=== PATIENT | female | born 1935 | race Caucasian/White ===

== ENCOUNTER 2020-01-10 15:53 | Inpatient (IN) | payer MEDICARE, OTHER ==
[~2020-01-10] VITALS: Ht 152.4 cm; Wt 76.5 kg
--- NOTE | 2020-01-10 16:14 | ED Cardiac General ---
History of Present Illness General Chief Complaint: Cardiac/General Problems Stated Complaint: LOW PULSE Source: patient Exam Limitations: no limitations History of Present Illness Date Seen by Provider: Jan 10, 2020 Time Seen by Provider: 16:11 Initial Comments To ER per private vehicle with reports of low pulse. She was at [facility] in [place] with Candice Zheng having her annual wellness exam, noted to have a low pulse and was referred here to the emergency room. She denies any shortness of breath, denies lightheadedness, denies fatigue or chest pain. Family has noticed her to be unusually weak and fatigued for the past 2-3 years. She is on lisinopril, metformin, amlodipine, no beta blockers. Timing/Duration: other (unknown) Activities at Onset: none Prior CP/Workup: no prior chest pain NTG SL MANAGER STAFFING: No ASA po MANAGER STAFFING: No Allergies and Home Medications Patient Home Medication List Home Medication List Reviewed: Yes Review of Systems Review of Systems Constitutional: see HPI EENTM: No Symptoms Reported Respiratory: No Symptoms Reported Cardiovascular: See HPI; Denies Chest Pain; Edema (chronic and unchanged in character), Irregular Heart Rate; Denies Lightheadedness, Denies Palpitations, Denies Syncope Gastrointestinal: See HPI Genitourinary: No Symptoms Reported Musculoskeletal: no symptoms reported Skin: no symptoms reported Psychiatric/Neurological: No Symptoms Reported Endocrine: No Symptoms Reported Hematologic/Lymphatic: No Symptoms Reported Past Axcbpui-Ewamkn-Ehawfo Hx Patient Social History Recent Foreign Travel: No Contact w/Someone Who Travel: No Physical Exam Vital Signs Vital Signs - First Documented 01/10/20 16:03 Temp 37.6 Pulse 44 Resp 28 Pulse Ox 98 O2 Delivery Room Air Capillary Refill : Height, Weight, BMI Height: '" Weight: lbs. oz. kg; BMI Method: General Appearance: No Apparent Distress, WD/WN HEENT: PERRL/EOMI, TMs Normal Neck: Full Range of Motion, Normal Inspection Respiratory: No Accessory Muscle Use, No Respiratory Distress Cardiovascular: Normal Peripheral Pulses, Bradycardia Gastrointestinal: Normal Bowel Sounds, Non Tender, Soft Extremity: Normal Capillary Refill, Normal Inspection, Other (2+ pitting edema bilateral lower extremities at the ankle, unchanged from baseline according to family.) Neurologic/Psychiatric: Alert, Oriented x3 Skin: Normal Color, Warm/Dry Progress/Results/Core Measures Results/Orders Lab Results Laboratory Tests Test 01/10/20 16:20 Range/Units White Blood Count 8.3 4.3-11.0 10^3/uL Red Blood Count 4.84 4.35-5.85 10^6/uL Hemoglobin 14.1 11.5-16.0 G/DL Hematocrit 41 35-52 % Mean Corpuscular Volume 84 80-99 FL Mean Corpuscular Hemoglobin 29 25-34 PG Mean Corpuscular Hemoglobin Concent 35 32-36 G/DL Red Cell Distribution Width 12.7 10.0-14.5 % Platelet Count 360 130-400 10^3/uL Mean Platelet Volume 9.8 7.4-10.4 FL Neutrophils (%) (Auto) 56 42-75 % Lymphocytes (%) (Auto) 37 12-44 % Monocytes (%) (Auto) 7 0-12 % Eosinophils (%) (Auto) 1 0-10 % Basophils (%) (Auto) 0 0-10 % Neutrophils # (Auto) 4.7 1.8-7.8 X 10^3 Lymphocytes # (Auto) 3.1 1.0-4.0 X 10^3 Monocytes # (Auto) 0.5 0.0-1.0 X 10^3 Eosinophils # (Auto) 0.1 0.0-0.3 10^3/uL Basophils # (Auto) 0.0 0.0-0.1 10^3/uL Prothrombin Time 12.8 12.2-14.7 SEC INR Comment 0.9 0.8-1.4 Activated Partial Thromboplast Time 27 24-35 SEC Sodium Level 132 L 135-145 MMOL/L Potassium Level 4.6 3.6-5.0 MMOL/L Chloride Level 98 98-107 MMOL/L Carbon Dioxide Level 19 L 21-32 MMOL/L Anion Gap 15 H 5-14 MMOL/L Blood Urea Nitrogen 12 7-18 MG/DL Creatinine 1.03 0.60-1.30 MG/DL Estimat Glomerular Filtration Rate 51 BUN/Creatinine Ratio 12 Glucose Level 219 H 70-105 MG/DL Calcium Level 10.2 H 8.5-10.1 MG/DL Corrected Calcium 10.0 8.5-10.1 MG/DL Magnesium Level 1.5 L 1.6-2.4 MG/DL Total Bilirubin 0.4 0.1-1.0 MG/DL Aspartate Amino Transf (AST/SGOT) 14 5-34 U/L Alanine Aminotransferase (ALT/SGPT) 17 0-55 U/L Alkaline Phosphatase 75 40-136 U/L Myoglobin 48.2 10.0-92.0 NG/ML Troponin I < 0.028 <0.028 NG/ML B-Type Natriuretic Peptide 80.8 <100.0 PG/ML Total Protein 7.7 6.4-8.2 GM/DL Albumin 4.2 3.2-4.5 GM/DL My Orders Orders - LALITHA MOREAU APRN Cbc With Automated Diff (01/10/20 16:00) Magnesium (01/10/20 16:00) Chest 1 View, Ap/Pa Only (01/10/20 16:00) Ekg Tracing (01/10/20 16:00) Comprehensive Metabolic Panel (01/10/20 16:00) Myoglobin Serum (01/10/20 16:00) Protime With Inr (01/10/20 16:00) Partial Thromboplastin Time (01/10/20 16:00) O2 (01/10/20 16:00) Monitor-Rhythm Ecg Trace Only (01/10/20 16:00) Lipid Panel (01/11/20 06:00) Ed Iv/Invasive Line Start (01/10/20 16:00) BNP (01/10/20 16:00) Troponin I (01/10/20 16:00) Vital Signs/I&O 01/10/20 16:03 Temp 37.6 Pulse 44 Resp 28 B/P (MAP) Pulse Ox 98 O2 Delivery Room Air Diagnostic Imaging Diagonstic Imaging: Xray Plain Films/CT/US/NM/MRI: chest Comments NAME: [facility] REC#: [id number] PT STATUS: REG ER : 1935 PHYSICIAN: LALITHA MOREAU APRN ADMIT DATE: 01/10/20/ER Draft Date of Exam:01/10/20 CHEST 1 VIEW, AP/PA ONLY INDICATION: Chest pain. FINDINGS: Heart size is within normal limits. There is some prominence of the central pulmonary vascularity. No alessia edema, pneumonia, effusion or pneumothorax. Some calcified hilar and mediastinal jc granulomatous disease. IMPRESSION: Some central vascular prominence as well as calcified thoracic lymph nodes on a granulomatous basis. No acute appearing chest pathology. Dictated on workstation # [id number] Dict: 01/10/20 1637 Trans: 01/10/20 1640 TS [id number] Interpreted by: LUÍS BOWSER Electronically signed by: Departure Communication (Admissions) Time/Spoke to Admitting Phy: 17:[address] Villareal and Dr. Velasquez, Dr. Velasquez would like to hold the amlodipine that she takes daily, continue the lisinopril and metformin, could give hydralazine as needed for hypertension as she has been 190/70 year the emergency room. I also spoke with the patient and family about CODE STATUS, she does have a DO NOT RESUSCITATE already filled out and they would like to keep that in place. I'll admit to the ICU. At this time she remains asymptomatic. Impression Primary Impression: Heart block Disposition: ADMITTED INPATIENT Condition: Stable Admissions Decision to Admit Reason: Admit from ER (General) Decision to Admit/Date: Jan 10, 2020 Time/Decision to Admit Time: 16:41 Departure-Patient Inst. Referrals: NO,LOCAL PHYSICIAN (PCP) Primary Care Physician LALITHA MOREAU APRN Jan 10, 2020 16:13
[2020-01-10 16:30] LABS: BASOPHILS % (AUTO) 0 % (0-10); EOSINOPHILS # (AUTO) 0.1 10^3/uL (0.0-0.3); EOSINOPHILS % (AUTO) 1 % (0-10); HEMATOCRIT 41 % (35-52); HEMOGLOBIN 14.1 G/DL (11.5-16.0); LYMPHOCYTES # (AUTO) 3.1 X 10^3 (1.0-4.0); LYMPHOCYTES % (AUTO) 37 % (12-44); MEAN CORPUSCULAR HEMOGLOBIN 29 PG (25-34); MEAN CORPUSCULAR HGB CONC 35 G/DL (32-36); MEAN CORPUSCULAR VOLUME 84 FL (80-99); MEAN PLATELET VOLUME 9.8 FL (7.4-10.4); MONOCYTES # (AUTO) 0.5 X 10^3 (0.0-1.0); MONOCYTES % (AUTO) 7 % (0-12); NEUTROPHILS # (AUTO) 4.7 X 10^3 (1.8-7.8); NEUTROPHILS % (AUTO) 56 % (42-75); PLATELET COUNT 360 10^3/uL (130-400); RED CELL DISTRIBUTION WIDTH 12.7 % (10.0-14.5); WHITE BLOOD COUNT 8.3 10^3/uL (4.3-11.0)
--- NOTE | 2020-01-10 16:40 | Diagnostic Imaging Report ---
INDICATION: Chest pain. FINDINGS: Heart size is within normal limits. There is some prominence of the central pulmonary vascularity. No alessia edema, pneumonia, effusion or pneumothorax. Some calcified hilar and mediastinal jc granulomatous disease. IMPRESSION: Some central vascular prominence as well as calcified thoracic lymph nodes on a granulomatous basis. No acute appearing chest pathology. Dictated by: Dictated on workstation # [id number]
[2020-01-10 16:54] LABS: INR 0.9 (0.8-1.4); PROTHROMBIN TIME PATIENT 12.8 SEC (12.2-14.7)
[2020-01-10 17:00] LABS: ALBUMIN 4.2 GM/DL (3.2-4.5); BILIRUBIN,TOTAL 0.4 MG/DL (0.1-1.0); CALCIUM 10.2 MG/DL (8.5-10.1); CREATININE SERUM 1.03 MG/DL (0.60-1.30); MAGNESIUM 1.5 MG/DL (1.6-2.4); POTASSIUM 4.6 MMOL/L (3.6-5.0); TOTAL PROTEIN 7.7 GM/DL (6.4-8.2)
[2020-01-10] MEDS ORDERED: hydrALAZINE (APESOLINE) 20 MG/ML VIAL IV ONE (18:00)
--- NOTE | 2020-01-10 18:43 | Consultation-Cardiology ---
HPI-Cardiology Cardiology Consultation: Date of Consultation 01/10/20 Time Seen by a Provider: 18:00 Date of Admission Attending Physician Saumya Villareal MD Admitting Physician No,Local Physician Consulting Physician MARINE SINCLAIR MD, MA, FACP, FACC, FSCAI, CCDS HPI: Chief Complaint: Reason for consultation: Slow heart beat HPI 84 yo woman who went to her pcp today for a routine visit and was found to have a slow heart beat. Referred to ER. ECG showed complete heart block. Denies cp or palp or syncope. Does tire easily. Notes moderate, exertional shortness of breath and recent decrease in stamina. Denies leg swelling. Denies recent fever, chills, wgt gain, wgt loss Review of Systems-Cardiology Review of Systems Constitutional: As described under HPI Eyes: No vision change Ears/Nose/Throat: chronic hearing loss; No recent hearing loss Respiratory: No As described under HPI Cardiovascular: No As described under HPI Gastrointestinal: No constipation, No diarrhea, No nausea, No vomiting Genitourinary: No dysuria, No hematuria, No urine frequency changes Musculoskeletal: back pain (chronic) Skin: No rash, No ulcerations Psychiatric/Neurological: No seizure, No focal weakness, No syncope Hematologic: No bleeding abnormalities KSR-Ognmzm-Jhfvwa Hx Patient Social History Alcohol Use: Denies Use Recreational Drug Use: No 2nd Hand Smoke Exposure: No Recent Foreign Travel: No Recent Infectious Disease Expo: No Hospitalization with Isolation: Denies Past Medical History PMH As described under Assessment. Family Medical History Family Medical History: Does not report fam h/o early CAD or SCD Allergies and Home Medications Allergies Coded Allergies: No Known Drug Allergies (Unverified , 01/10/20) Patient Home Medication List Home Medication List Reviewed: Yes Physical Exam-Cardiology Physical Exam Vital Signs/I&O 01/10/20 16:03 Temp 37.6 Pulse 44 Resp 28 B/P (MAP) Pulse Ox 98 O2 Delivery Room Air Capillary Refill : Less Than 3 Seconds Constitutional: AAO x 3, well-developed, well-nourished HEENT: PERRL, EOMI; No hearing is well preserved; hard of hearing Neck: carotid pulses are 2 + bilaterally, with good upstrokes Respiratory: No accessory muscle use; other (good bilat air entry) Cardiovascular: regular rate-rhythm, S1 and S2, systolic murmur (2/6 XOCHITL at card base) Gastrointestinal: No tender; soft; No guarding, No rebound; audible bowel sounds Extremities: No clubbing, No cyanosis, No significant edema Neurologic/Psychiatric: oriented x 3, other (moves all limbs equally) Skin: No rash on exposed areas, No ulcerations on exposed areas Data Review Labs Laboratory Tests 01/10/20 16:20: White Blood Count 8.3, Red Blood Count 4.84, Hemoglobin 14.1, Hematocrit 41, Mean Corpuscular Volume 84, Mean Corpuscular Hemoglobin 29, Mean Corpuscular Hemoglobin Concent 35, Red Cell Distribution Width 12.7, Platelet Count 360, Mean Platelet Volume 9.8, Neutrophils (%) (Auto) 56, Lymphocytes (%) (Auto) 37, Monocytes (%) (Auto) 7, Eosinophils (%) (Auto) 1, Basophils (%) (Auto) 0, Neutrophils # (Auto) 4.7, Lymphocytes # (Auto) 3.1, Monocytes # (Auto) 0.5, Eosinophils # (Auto) 0.1, Basophils # (Auto) 0.0, Prothrombin Time 12.8, INR Comment 0.9, Activated Partial Thromboplast Time 27, Sodium Level 132L, Potassium Level 4.6, Chloride Level 98, Carbon Dioxide Level 19L, Anion Gap 15H, Blood Urea Nitrogen 12, Creatinine 1.03, Estimat Glomerular Filtration Rate 51, BUN/Creatinine Ratio 12, Glucose Level 219H, Calcium Level 10.2H, Corrected Calcium 10.0, Magnesium Level 1.5L, Total Bilirubin 0.4, Aspartate Amino Transf (AST/SGOT) 14, Alanine Aminotransferase (ALT/SGPT) 17, Alkaline Phosphatase 75, Myoglobin 48.2, Troponin I < 0.028, B-Type Natriuretic Peptide 80.8, Total Protein 7.7, Albumin 4.2 Laboratory Tests 01/10/20 16:20 A/P-Cardiology Assessment/Admission Diagnosis Complete heart block Hypertension Discussion and Recomendations * Treat hypertension with hydralazine * Replenish Mg * Monitor labs * Echo * Permanent dual chamber pacemaker recommended. I reviewed the rationale, procedure, risks, benefits, and potential complications of the procedure with her and her daughters and her granddaughter. They understand. She is considering Clinical Quality Measures AMI/AHF: ASA po Prior to arrival: MARINE Barth MD FACP FACC CCDS Jan 10, 2020 18:43
[2020-01-10] MEDS ORDERED: MAGNESIUM 1 GM/100 ML IVPB 100 ML IV NR (18:45)
[2020-01-10] MEDS ORDERED: MAGNESIUM 1 GM/100 ML IVPB 100 ML IV ONE (18:45)
[2020-01-10] MEDS ORDERED: NS IV 1000 ML 1,000 ML ONE (18:58)
[2020-01-10 19:00] VITALS: BP 165/75
[2020-01-10] MEDS ORDERED: CATHETER FLUSH 10 ML SYR IV PRN (19:00)
[2020-01-10] MEDS: NS IV 1000 ML 1,000 ML IV SCH (19:00)
[2020-01-10] MEDS ORDERED: hydrALAZINE (APESOLINE) 20 MG/ML VIAL IV PRN (19:15)
[2020-01-10] MEDS: hydrALAZINE (APESOLINE) 20 MG/ML VIAL IV SCH ×2 (20:08→23:16)
[2020-01-10 20:15] VITALS: BP 166/56
[2020-01-10 21:00] VITALS: BP 159/56
[2020-01-10 22:00] VITALS: BP 160/55
[2020-01-10] MEDS: inSUlin ASPART (NovoLOG) 1 UNIT/0.01 ML (CHARGE PER UNIT) SC SCH (22:23)
[2020-01-10 23:00] VITALS: BP 163/54
[2020-01-11] VITALS (21 sets, daily range): BP systolic 110–164; BP diastolic 38–85
[2020-01-11] MEDS ORDERED: inSUlin ASPART (NovoLOG) 1 UNIT/0.01 ML (CHARGE PER UNIT) SC SCH
[2020-01-11 04:08] LABS: HEMATOCRIT 37 % (35-52); HEMOGLOBIN 12.7 G/DL (11.5-16.0); MEAN CORPUSCULAR HEMOGLOBIN 29 PG (25-34); MEAN CORPUSCULAR HGB CONC 34 G/DL (32-36); MEAN CORPUSCULAR VOLUME 84 FL (80-99); PLATELET COUNT 318 10^3/uL (130-400); RED CELL DISTRIBUTION WIDTH 12.9 % (10.0-14.5); WHITE BLOOD COUNT 9.5 10^3/uL (4.3-11.0)
[2020-01-11] MEDS: hydrALAZINE (APESOLINE) 20 MG/ML VIAL IV SCH ×5 (04:08→19:58)
[2020-01-11 04:09] LABS: BASOPHILS % (AUTO) 0 % (0-10); EOSINOPHILS # (AUTO) 0.1 10^3/uL (0.0-0.3); EOSINOPHILS % (AUTO) 1 % (0-10); LYMPHOCYTES # (AUTO) 2.2 X 10^3 (1.0-4.0); LYMPHOCYTES % (AUTO) 23 % (12-44); MEAN PLATELET VOLUME 10.3 FL (7.4-10.4); MONOCYTES # (AUTO) 0.8 X 10^3 (0.0-1.0); MONOCYTES % (AUTO) 9 % (0-12); NEUTROPHILS # (AUTO) 6.4 X 10^3 (1.8-7.8); NEUTROPHILS % (AUTO) 68 % (42-75)
[2020-01-11 04:48] LABS: ALBUMIN 3.6 GM/DL (3.2-4.5); BILIRUBIN,TOTAL 0.4 MG/DL (0.1-1.0); CALCIUM 9.5 MG/DL (8.5-10.1); CREATININE SERUM 1.14 MG/DL (0.60-1.30); MAGNESIUM 2.1 MG/DL (1.6-2.4); PHOSPHORUS 3.2 MG/DL (2.3-4.7); POTASSIUM 4.4 MMOL/L (3.6-5.0); TOTAL PROTEIN 6.4 GM/DL (6.4-8.2)
[2020-01-11] MEDS: POTASSIUM CL 10MEQ/50ML IVPB 50 ML IV SCH (05:10)
[2020-01-11] MEDS: MAGNESIUM 1 GM/100 ML IVPB 100 ML IV SCH (05:10)
[2020-01-11] MEDS: KCL 20 MEQ TAB (K-DUR) PO SCH (05:10)
[2020-01-11] MEDS: NS IV 1000 ML 1,000 ML IV SCH ×2 (05:59→15:30)
[2020-01-11] MEDS: inSUlin ASPART (NovoLOG) 1 UNIT/0.01 ML (CHARGE PER UNIT) SC SCH ×4 (06:09→20:14)
[2020-01-11] MEDS: metFORMIN 500 MG (GLUCOPHAGE) TAB PO SCH (07:53)
--- NOTE | 2020-01-11 07:53 | Diagnostic Imaging Report ---
INDICATION: Heart block. Comparison made with prior examination from 01/10/2020. FINDINGS: There is cardiomegaly. Mediastinum is unremarkable. Lungs are clear. There is no pleural effusion or pneumothorax. IMPRESSION: No acute cardiopulmonary abnormality. Cardiomegaly. Dictated by: Dictated on workstation # [id number]
[2020-01-11] MEDS: lisINopril 40 MG (PRINIVIL) TABLET PO SCH (09:31)
--- NOTE | 2020-01-11 10:17 | NUR ---
Pastoral care visit.
--- NOTE | 2020-01-11 10:48 | Progress Note - Cardiology ---
Cardiology SOAP Progress Note Subjective: No cp or palp or syncope No shortness of breath at rest Gen malaise No n/v/d Objective: I&O/Vital Signs 01/10/20 01/10/20 01/10/20 01/11/20 23:00 23:16 23:21 00:00 Temp 36.8 Pulse 41 42 Resp 18 19 B/P (MAP) 163/54 (90) 144/45 (78) Pulse Ox 94 95 O2 Delivery Room Air Room Air Room Air 01/11/20 01/11/20 01/11/20 01/11/20 01:00 01:00 02:00 03:00 Pulse 42 42 41 41 Resp 25 16 21 B/P (MAP) 140/46 (77) 156/47 (83) 148/49 (82) Pulse Ox 94 95 94 O2 Delivery Room Air Room Air Room Air 01/11/20 01/11/20 01/11/20 01/11/20 04:02 04:03 04:03 05:00 Temp 36.8 Pulse 41 41 Resp 16 22 B/P (MAP) 159/40 (79) 153/38 (76) Pulse Ox 96 96 O2 Delivery Room Air Room Air Room Air Room Air 01/11/20 01/11/20 01/11/20 01/11/20 06:00 07:00 07:00 08:00 Pulse 40 40 40 40 Resp 21 29 16 B/P (MAP) 164/63 (96) 144/66 (92) 151/48 (82) Pulse Ox 96 92 95 O2 Delivery Room Air Room Air Room Air 01/11/20 09:00 Pulse 40 Resp 21 B/P (MAP) Pulse Ox 97 O2 Delivery Room Air 01/11/20 00:00 Intake Total 200 ml Balance 200 ml Constitutional: AAO x 3, well-developed, well-nourished Respiratory: No accessory muscle use; other (good bilat air entry) Cardiovascular: regular rate-rhythm, S1 and S2, systolic murmur (2/6 XOCHITL at card base) Gastrointestional: No tender; soft; No guarding, No rebound; audible bowel sounds Extremities: No clubbing, No cyanosis, No significant edema Neurologic/Psychiatric: oriented x 3, other (moves all limbs equally) Skin: No rash on exposed areas, No ulcerations on exposed areas Results/Procedures: Labs Laboratory Tests 2/19/20 16:20: White Blood Count 8.3, Red Blood Count 4.84, Hemoglobin 14.1, Hematocrit 41, Mean Corpuscular Volume 84, Mean Corpuscular Hemoglobin 29, Mean Corpuscular Hemoglobin Concent 35, Red Cell Distribution Width 12.7, Platelet Count 360, M yulissa Platelet Volume 9.8, Neutrophils (%) (Auto) 56, Lymphocytes (%) (Auto) 37, Monocytes (%) (Auto) 7, Eosinophils (%) (Auto) 1, Basophils (%) (Auto) 0, Neutrophils # (Auto) 4.7, Lymphocytes # (Auto) 3.1, Monocytes # (Auto) 0.5, Eosinophils # (Auto) 0.1, Basophils # (Auto) 0.0, Prothrombin Time 12.8, INR Comment 0.9, Activated Partial Thromboplast Time 27, Sodium Level 132L, P otassium Level 4.6, Chloride Level 98, Carbon Dioxide Level 19L, Anion Gap 15H, Blood Urea Nitrogen 12, Creatinine 1.03, Estimat Glomerular Filtration Rate 51, BUN/Creatinine Ratio 12, Glucose Level 219H, Calcium Level 10.2H, Corrected Calcium 10.0, Magnesium Level 1.5L, Total Bilirubin 0.4, Aspartate Amino Transf (AST/SGOT) 14, Alanine Aminotransferase (ALT/SGPT) 17, Alkaline Phosphatase 75, Myoglobin 48.2, Troponin I < 0.028, B-Type Natriuretic Peptide 80.8, Total Protein 7.7, Albumin 4.2 01/10/20 22:19: Glucometer 315H 01/11/20 03:52: White Blood Count 9.5, Red Blood Count 4.43, Hemoglobin 12.7, Hematocrit 37, Mean Corpuscular Volume 84, Mean Corpuscular Hemoglobin 29, Mean Corpuscular Hemoglobin Concent 34, Red Cell Distribution Width 12.9, Platelet Count 318, Mean Platelet Volume 10.3, Neutrophils (%) (Auto) 68, Lymphocytes (%) (Auto) 23, Monocytes (%) (Auto) 9, Eosinophils (%) (Auto) 1, Basophils (%) (Auto) 0, Neutrophils # (Auto) 6.4, Lymphocytes # (Auto) 2.2, Monocytes # (Auto) 0.8, Eosinophils # (Auto) 0.1, Basophils # (Auto) 0.0, Sodium Level 133L, Potassium Level 4.4, Chloride Level 103, Carbon Dioxide Level 18L, Anion Gap 12, Blood Urea Nitrogen 15, Creatinine 1.14, Estimat Glomerular Filtration Rate 45, BUN/Creatinine Ratio 13, Glucose Level 182H, Calcium Level 9.5, Corrected Ca lcium 9.8, Magnesium Level 2.1, Total Bilirubin 0.4, Aspartate Amino Transf (AST/SGOT) 12, Alanine Aminotransferase (ALT/SGPT) 12, Alkaline Phosphatase 62, Total Protein 6.4, Albumin 3.6, Phosphorus Level 3.2, Triglycerides Level 186H, Cholesterol Level 232H, LDL Cholesterol Direct 180H, VLDL Cholesterol 37, HDL Cholesterol 46 01/11/20 06:03: Glucometer 200H Laboratory Tests 01/10/20 16:20 01/11/20 03:52 A/P: Assessment: Complete heart block Hypertension Plan: * Treat hypertension with hydralazine * Monitor labs * Echo * Permanent dual chamber pacemaker recommended. I again reviewed the rationale, procedure, risks, benefits, and potential complications of the procedure with her. She understands and wishes to proceed. Plan for later today Clinical Quality Measures AMI/AHF: ASA po Prior to arrival: MARINE Barth MD FACP FAC CCDS Jan 11, 2020 10:48
[2020-01-11] MEDS ORDERED: LIDOCAINE 1% INJ 20 ML 20 ML VIAL ONE (10:55)
[2020-01-11] MEDS ORDERED: HEParin (CATH LAB) 1,000 ML IV ONE (10:55)
[2020-01-11] MEDS ORDERED: ANTACID SUSP 30 ML UDC (MYLANTA) PO NR (12:45)
[2020-01-11] MEDS ORDERED: ACETAMINOPHEN 325 MG TABLET PO NR (12:45)
--- NOTE | 2020-01-11 12:45 | NUR ---
[address] SINCLAIR PT C/O CHEST PAIN AND NAUSEA. EKG OBTAINED. DR SINCLAIR SAID HE WILL COME AT LOOK AT EKG. 1245 DR SINCLAIR REVIEWED EKG. ORDERS GIVEN FOR TYLENOL AND MYLANTA. ORDERS WRITTEN DOWN AND REPEATED BACK. WILL CONTINUE TO MONITOR.
--- NOTE | 2020-01-11 14:15 | NUR ---
THIS NURSE ATTEMPTED TO NOTIFY DR ALDRICH PT SCORED A 6 ON DVT ASSESSMENT. ALSO PT HAS ONLY HAD 100ML OF URINE OUT SINCE 1000 AM. PT URINE IS VERY CLOUDY WITH FOUL ODOR. WILL ATTEMPT TO REACH DR ALDRICH AGAIN.
[2020-01-11] MEDS ORDERED: BACITRACIN INJECTION 50,000 UNIT, SODIUM CHLORIDE 0.9% IRRIGATIO 500 ML IR ONE ×2 (15:30)
[2020-01-11] MEDS ORDERED: BACITRACIN 50000 UNITS/500 ML NS IR ONE ×2 (15:30)
[2020-01-11] MEDS ORDERED: ceFAZolin INJECTION 1,000 MG ONE (16:13)
[2020-01-11] MEDS ORDERED: MIDAZOLAM 5 MG/5 ML (VERSED) VIAL ONE ×2 (16:13→17:32)
[2020-01-11] MEDS ORDERED: fentaNYL INJECTION 100 MCG/2 ML AMP ONE (16:13)
[2020-01-11] MEDS ORDERED: NS (IVPB) 0 ML ONE (16:15)
[2020-01-11] MEDS ORDERED: NS IV 1000 ML 1,000 ML ONE (16:39)
--- NOTE | 2020-01-11 17:32 | NUR ---
THIS NURSE NOTIFIED DR ALDRICH PT HAS ONLY HAD 100ML OF URINE OUTPUT THE LAST 4 HOURS AND PT URINE IS VERY CLOUDY WITH FOUL ODOR. ORDERS GIVEN FOR UA AND 500 ML BOLUS X1.
[2020-01-11 17:47] LABS: BILIRUBIN,URINE 1+ (NEGATIVE); CLARITY,URINE TURBID; COLOR,URINE YELLOW; GLUCOSE, URINE (UA) NEGATIVE (NEGATIVE); KETONES,URINE 1+ (NEGATIVE); LEUKOCYTE ESTERASE ,URINE 2+ (NEGATIVE); NITRITE,URINE NEGATIVE (NEGATIVE); PH,URINE 5.5 (5-9); PROTEIN,URINE 2+ (NEGATIVE)
[2020-01-11 18:00] LABS: BACTERIA,URINE LARGE /HPF; WBC,URINE TNTC /HPF
[2020-01-11] MEDS ORDERED: NS IV 1000 ML 1,000 ML IV SCH (18:46)
[2020-01-11] MEDS ORDERED: PATIENT MAY USE OWN MEDS, ALL PO SCH (19:00)
[2020-01-11] MEDS ORDERED: meTOprolol SUCCINATE 100 MG (TOPROL XL) TAB PO NR (19:00)
[2020-01-11] MEDS ORDERED: ACETAMINOPHEN 325 MG TABLET PO PRN (19:00)
--- NOTE | 2020-01-11 19:54 | Diagnostic Imaging Report ---
EXAMINATION: Chest (PA and lateral). CLINICAL INDICATION: 84-year-old female, status post pacemaker placement. COMPARISON: January 11, 2020 at 0346 hours. FINDINGS: There is a newly placed left-sided cardiac assist device and leads. Heart size and mediastinal contours are grossly unchanged given differences in patient positioning. There is no identified pneumothorax. There is nonspecific left basilar airspace consolidation. IMPRESSION: 1. No identified pneumothorax. 2. Nonspecific left basilar airspace consolidation which may relate to small effusion, atelectasis and/or infiltrate. Dictated by: Dictated on workstation # [id number]
[2020-01-11] MEDS: ceFAZolin INJECTION 1,000 MG in WATER (STERILE) FOR INJECTION 10 ML IV SCH (20:13)
[2020-01-11] MEDS: NS IV 500 ML 500 ML IV SCH ×2 (20:14→20:22)
--- NOTE | 2020-01-11 21:50 | History & Physical ---
HPI History of Present Illness: 84 yo F that was at her annual MAWV and was found to have bradycardia. Patient states that she has been fatigued but otherwise she has been asymptomatic. Denies any shortness of breath, chest pain, or dizziness. Source: patient, family (Daughter) Exam Limitations: no limitations Date seen by provider: Jan 11, 2020 Time Seen by Provider: 08:45 Attending Physician Erica Villareal MD [facility] [place] Consult Date of Admission Jan 10, 2020 at 17:15 Home Medications Home Medications Reviewed patient Home Medication Reconciliation performed by pharmacy medication reconciliations neurology technician and/or nursing. Patients Allergies have been reviewed. Allergies Coded Allergies: No Known Drug Allergies (Unverified , 01/10/20) CGP-Wkgebs-Xjklmi Hx Patient Social History Alcohol Use: Denies Use Recreational Drug Use: No 2nd Hand Smoke Exposure: No Recent Foreign Travel: No Contact w/other who traveled: No Recent Infectious Disease Expo: No Immunizations Up To Date Date of Pneumonia Vaccine: Jan 10, 2019 Date of Influenza Vaccine: Sep 15, 2019 Past Medical History HLD Family Medical History Significant Family History: No Pertinent Family Hx Family History: BREAST CA 19 MOTHER Hypertension 19 FATHER Review of Systems ([facility]) Constitutional: No chills, No fever; malaise, weakness EENTM: no symptoms reported; No mouth pain, No nose congestion, No throat pain Respiratory: No cough; dyspnea on exertion; No orthopnea; short of breath Cardiovascular: no symptoms reported; No chest pain, No edema, No palpitations Gastrointestinal: no symptoms reported; No abdominal pain, No constipation, No diarrhea, No nausea, No vomiting Genitourinary: no symptoms reported; No dysuria, No frequency, No hematuria Musculoskeletal: no symptoms reported Skin: no symptoms reported; No lesions, No rash Psychiatric/Neurological: No Symptoms Reported Reviewed Test Results Reviewed Test Results Lab Laboratory Tests Test 01/10/20 22:19 01/11/20 03:52 01/11/20 06:03 01/11/20 11:43 Range/Units Glucometer 315 H 200 H 188 H 70-110 MG/DL White Blood Count 9.5 4.3-11.0 10^3/uL Red Blood Count 4.43 4.35-5.85 10^6/uL Hemoglobin 12.7 11.5-16.0 G/DL Hematocrit 37 35-52 % Mean Corpuscular Volume 84 80-99 FL Mean Corpuscular Hemoglobin 29 25-34 PG Mean Corpuscular Hemoglobin Concent 34 32-36 G/DL Red Cell Distribution Width 12.9 10.0-14.5 % Platelet Count 318 130-400 10^3/uL Mean Platelet Volume 10.3 7.4-10.4 FL Neutrophils (%) (Auto) 68 42-75 % Lymphocytes (%) (Auto) 23 12-44 % Monocytes (%) (Auto) 9 0-12 % Eosinophils (%) (Auto) 1 0-10 % Basophils (%) (Auto) 0 0-10 % Neutrophils # (Auto) 6.4 1.8-7.8 X 10^3 Lymphocytes # (Auto) 2.2 1.0-4.0 X 10^3 Monocytes # (Auto) 0.8 0.0-1.0 X 10^3 Eosinophils # (Auto) 0.1 0.0-0.3 10^3/uL Basophils # (Auto) 0.0 0.0-0.1 10^3/uL Sodium Level 133 L 135-145 MMOL/L Potassium Level 4.4 3.6-5.0 MMOL/L Chloride Level 103 98-107 MMOL/L Carbon Dioxide Level 18 L 21-32 MMOL/L Anion Gap 12 5-14 MMOL/L Blood Urea Nitrogen 15 7-18 MG/DL Creatinine 1.14 0.60-1.30 MG/DL Estimat Glomerular Filtration Rate 45 BUN/Creatinine Ratio 13 Glucose Level 182 H 70-105 MG/DL Calcium Level 9.5 8.5-10.1 MG/DL Corrected Calcium 9.8 8.5-10.1 MG/DL Phosphorus Level 3.2 2.3-4.7 MG/DL Magnesium Level 2.1 1.6-2.4 MG/DL Total Bilirubin 0.4 0.1-1.0 MG/DL Aspartate Amino Transf (AST/SGOT) 12 5-34 U/L Alanine Aminotransferase (ALT/SGPT) 12 0-55 U/L Alkaline Phosphatase 62 40-136 U/L Total Protein 6.4 6.4-8.2 GM/DL Albumin 3.6 3.2-4.5 GM/DL Triglycerides Level 186 H <150 MG/DL Cholesterol Level 232 H < 200 MG/DL LDL Cholesterol Direct 180 H 1-129 MG/DL VLDL Cholesterol 37 5-40 MG/DL HDL Cholesterol 46 40-60 MG/DL Test 01/11/20 14:37 01/11/20 15:34 01/11/20 19:55 Range/Units Urine Color YELLOW Urine Clarity TURBID Urine pH 5.5 5-9 Urine Specific [place] >=1.030 1.016-1.022 Urine Protein 2+ H NEGATIVE Urine Glucose (UA) NEGATIVE NEGATIVE Urine Ketones 1+ H NEGATIVE Urine Nitrite NEGATIVE NEGATIVE Urine Bilirubin 1+ H NEGATIVE Urine Urobilinogen 0.2 < = 1.0 MG/DL Urine Leukocyte Esterase 2+ H NEGATIVE Urine RBC (Auto) TRACE-I NEGATIVE Urine RBC NONE /HPF Urine WBC TNTC H /HPF Urine Squamous Epithelial Cells 2-5 /HPF Urine Crystals NONE /LPF Urine Bacteria LARGE H /HPF Urine Casts NONE /LPF Urine Mucus NEGATIVE /LPF Urine Culture Indicated YES Glucometer 190 H 186 H 70-110 MG/DL Physical Exam-([facility]) Physical Exam Vital Signs VS - Last 72 Hours, by Label 01/10/20 01/10/20 01/10/20 01/10/20 16:03 17:52 19:00 19:00 Temp 37.6 37.6 37.2 Pulse 44 42 45 46 Resp 28 18 18 B/P (MAP) 171/70 165/75 (105) Pulse Ox 98 98 98 O2 Delivery Room Air Room Air Room Air 01/10/20 01/10/20 01/10/20 01/10/20 19:15 19:15 20:15 21:00 Pulse 43 42 Resp 16 21 B/P (MAP) 166/56 (92) 159/56 (90) Pulse Ox 98 98 O2 Delivery Room Air Room Air Room Air Room Air 01/10/20 01/10/20 01/10/20 01/10/20 22:00 23:00 23:16 23:21 Temp 36.8 Pulse 40 41 Resp 19 18 B/P (MAP) 160/55 (90) 163/54 (90) Pulse Ox 94 94 O2 Delivery Room Air Room Air Room Air 01/11/20 01/11/20 01/11/20 01/11/20 00:00 01:00 01:00 02:00 Pulse 42 42 42 41 Resp 19 25 16 B/P (MAP) 144/45 (78) 140/46 (77) 156/47 (83) Pulse Ox 95 94 95 O2 Delivery Room Air Room Air Room Air 01/11/20 01/11/20 01/11/20 01/11/20 03:00 04:02 04:03 04:03 Temp 36.8 Pulse 41 41 Resp 21 16 B/P (MAP) 148/49 (82) 159/40 (79) Pulse Ox 94 96 O2 Delivery Room Air Room Air Room Air Room Air 01/11/20 01/11/20 01/11/20 01/11/20 05:00 06:00 07:00 07:00 Pulse 41 40 40 40 Resp 22 21 29 B/P (MAP) 153/38 (76) 164/63 (96) 144/66 (92) Pulse Ox 96 96 92 O2 Delivery Room Air Room Air Room Air 01/11/20 01/11/20 01/11/20 01/11/20 08:00 08:00 09:00 10:00 Pulse 40 40 39 Resp 16 21 27 B/P (MAP) 151/48 (82) 149/41 (77) Pulse Ox 95 97 94 O2 Delivery Room Air Room Air Room Air Room Air FiO2 97 01/11/20 01/11/20 01/11/20 01/11/20 11:00 11:43 12:00 12:00 Temp 37.5 Pulse 40 40 Resp 29 15 B/P (MAP) 147/42 (77) 156/47 (83) Pulse Ox 94 95 O2 Delivery Room Air Room Air Room Air FiO2 98 01/11/20 01/11/20 01/11/20 01/11/20 12:40 13:00 14:00 15:00 Pulse 41 41 40 40 Resp 16 25 13 B/P (MAP) 145/46 (79) 138/45 (76) 142/57 (85) Pulse Ox 95 91 94 O2 Delivery Room Air Room Air Room Air 01/11/20 01/11/20 01/11/20 01/11/20 15:45 16:00 16:00 19:15 Temp 37.2 Pulse 41 Resp 29 B/P (MAP) 148/49 (82) Pulse Ox 94 O2 Delivery Room Air Room Air Room Air FiO2 98 01/11/20 21:00 Temp 36.7 Pulse 61 Resp 14 B/P (MAP) 157/64 (95) Pulse Ox 93 O2 Delivery Room Air Capillary Refill : Less Than 3 Seconds General Appearance: WD/WN, no apparent distress HEENT: PERRL/EOMI Neck: non-tender, full range of motion, supple Respiratory: chest non-tender, lungs clear, normal breath sounds, no respiratory distress, no accessory muscle use Cardiovascular: no murmur, bradycardia Gastrointestinal: normal bowel sounds, non tender, soft, no organomegaly Back: no CVA tenderness, no vertebral tenderness Extremities: normal range of motion, non-tender, normal inspection, no pedal edema, no calf tenderness Neurologic/Psychiatric: finishing operator II-XII nml as tested, no motor/sensory deficits, alert, normal mood/affect, oriented x 3 Skin: normal color, warm/dry Lymphatic: no adenopathy Assessment/Plan Assessment/Plan Admission Status: Inpatient Order (span 2 midnights) Reason for Inpatient Admission: Patient needs pacemaker placement and consult from cardiology (1) Complete heart block Status: Acute Assessment & Plan: - Cardiology consulted and plan for pacemaker placement today and likely d.c tomorrow (2) Bradycardia Status: Acute (3) HLD (hyperlipidemia) Status: Chronic Qualifiers: Qualified Codes: E78.2 - Mixed hyperlipidemia (4) DVT prophylaxis Status: Acute Assessment & Plan: - SCDs, no Lovenox due to procedure Clinical Quality Measures AMI/AHF: ASA po Prior to arrival: No DVT/VTE Risk/Contraindication: Risk Factor Score Per Nursin RFS Level Per Nursing on Admit: 4+=Very High ERICA VILLAREAL MD Jan 11, 2020 21:50
--- NOTE | 2020-01-11 23:59 | OPERATIVE REPORT ---
DATE OF SERVICE: 01/11/2020 PREOPERATIVE DIAGNOSIS: Complete heart block. POSTOPERATIVE DIAGNOSIS: Complete heart block. PROCEDURE: Dual chamber pacemaker implantation. INDICATIONS: The patient is an 84-year-old lady who presented with complete heart block. Informed consent was obtained for dual chamber pacemaker implantation. She provided informed consent for permanent pacemaker. DESCRIPTION OF PROCEDURE: She was brought to the cardiac catheterization laboratory in a fasting state. The left prepectoral area was prepared and draped in the usual sterile fashion. We used ultrasound guidance to access the subclavian vein. We were able to accomplish this without any significant difficulty. Two guidewires were advanced through separate sticks. The tips of the wire were placed in the right atrium. Sharp and blunt dissection was used to make a pacemaker pocket. Good hemostasis was assured. The guidewires were used to advance the sheaths and the guidewires were removed. The sheaths were used to advance leads and the sheaths were removed. Lead positioning was carried out under fluoroscopy. The leads are both active fixation, right atrial lead is a Medtronic model #600607 with serial #[id number]. It is placed at the right atrial appendage. Good capture and sensing thresholds were obtained. P-wave amplitude was 3.8 millivolts. Pacing impedance was 617 ohms. The capture threshold was 0.5 volts at 0.5 milliseconds. Ventricular lead is Medtronic model 5076-58 with serial [id number] where it is placed at the right ventricular apex. It is an active fixation lead. R waves are measured at 6.6 millivolts, pacing impedance is 1341 ohms. Capture threshold is 1 volt at 0.6 milliseconds. Both leads were tested at 10 volts. There was no diaphragmatic stimulation. The pacemaker pocket had been packed with gauze soaked in an antibiotic solution. These were removed and the pocket was thoroughly irrigated with an antibiotic solution. The leads were sutured to the prepectoral fascia using sleeves and 0 Ti-Cron. The leads were attached to a dual chamber pacemaker. This is Medtronic model W3DR01 with serial [id number]. The leads and the pacemaker were placed in the pocket and the pocket was closed in layers using 3.0 Vicryl. She tolerated the procedure well. Job ID: [id number] DocumentID: [id number] Dictated Date: 01/11/2020 18:42:10 Mill Controller Date: 01/11/2020 23:58:05 Dictated By: MARINE SINCLAIR MD, MA, FACP, FACC,
[2020-01-12] MEDS: hydrALAZINE (APESOLINE) 20 MG/ML VIAL IV SCH ×3 (00:12→08:38)
[2020-01-12 01:00] VITALS: BP 120/69
[2020-01-12] MEDS: NS IV 1000 ML 1,000 ML IV SCH ×2 (01:21→07:47)
[2020-01-12 03:42] VITALS: BP 145/72
[2020-01-12 03:52] LABS: BASOPHILS % (AUTO) 0 % (0-10); EOSINOPHILS # (AUTO) 0.1 10^3/uL (0.0-0.3); EOSINOPHILS % (AUTO) 1 % (0-10); HEMATOCRIT 36 % (35-52); HEMOGLOBIN 11.8 G/DL (11.5-16.0); LYMPHOCYTES % (AUTO) 25 % (12-44); MEAN CORPUSCULAR HEMOGLOBIN 28 PG (25-34); MEAN CORPUSCULAR HGB CONC 32 G/DL (32-36); MEAN CORPUSCULAR VOLUME 87 FL (80-99); MEAN PLATELET VOLUME 9.9 FL (7.4-10.4); MONOCYTES # (AUTO) 0.8 X 10^3 (0.0-1.0); MONOCYTES % (AUTO) 10 % (0-12); NEUTROPHILS # (AUTO) 5.1 X 10^3 (1.8-7.8); NEUTROPHILS % (AUTO) 65 % (42-75); PLATELET COUNT 268 10^3/uL (130-400); RED CELL DISTRIBUTION WIDTH 13.1 % (10.0-14.5); WHITE BLOOD COUNT 7.9 10^3/uL (4.3-11.0)
[2020-01-12 04:20] LABS: ALBUMIN 3.2 GM/DL (3.2-4.5); BILIRUBIN,TOTAL 0.4 MG/DL (0.1-1.0); CALCIUM 8.5 MG/DL (8.5-10.1); CREATININE SERUM 0.91 MG/DL (0.60-1.30); MAGNESIUM 1.8 MG/DL (1.6-2.4); POTASSIUM 4.3 MMOL/L (3.6-5.0); TOTAL PROTEIN 5.8 GM/DL (6.4-8.2)
[2020-01-12] MEDS: KCL 20 MEQ TAB (K-DUR) PO SCH (04:33)
[2020-01-12] MEDS: POTASSIUM CL 10MEQ/50ML IVPB 50 ML IV SCH (04:33)
[2020-01-12] MEDS: MAGNESIUM 1 GM/100 ML IVPB 100 ML IV SCH (04:33)
[2020-01-12] MEDS ORDERED: WATER (STERILE) FOR INJECTION 10 ML ONE (06:00)
[2020-01-12] MEDS ORDERED: ceFAZolin INJECTION 1,000 MG ONE (06:00)
[2020-01-12] MEDS: inSUlin ASPART (NovoLOG) 1 UNIT/0.01 ML (CHARGE PER UNIT) SC SCH (06:10)
[2020-01-12] MEDS: metFORMIN 500 MG (GLUCOPHAGE) TAB PO SCH (06:10)
[2020-01-12] MEDS: ceFAZolin INJECTION 1,000 MG in WATER (STERILE) FOR INJECTION 10 ML IV SCH (06:10)
--- NOTE | 2020-01-12 07:50 | Diagnostic Imaging Report ---
INDICATION: 3rd degree heart block. TECHNIQUE: Single view chest 4:33 AM. CORRELATION STUDY: 01/11/2020 FINDINGS: Suboptimal limited depth of inspiration results in some crowding at the lung bases. Lung gurrola are generally clear. Heart size and mediastinal configuration are stable. Left-sided AICD present. Overlying monitor leads. IMPRESSION: 1. Borderline heart size. Vasculature overall improved and appears less congested. Dictated by: Dictated on workstation # [id number]
[2020-01-12 08:00] VITALS: BP 128/69
[2020-01-12] MEDS: lisINopril 40 MG (PRINIVIL) TABLET PO SCH (08:38)
[2020-01-12] MEDS ORDERED: meTOprolol SUCCINATE 100 MG (TOPROL XL) TAB PO SCH (09:00)
[2020-01-12] MEDS ORDERED: LISI40TA PO (10:42)
[2020-01-12] MEDS ORDERED: CEFU500T63 PO (10:42)
[2020-01-12] MEDS ORDERED: MTP100TCR PO (10:42)
--- NOTE | 2020-01-12 11:36 | Discharge Summary ---
Diagnosis/Chief Complaint Date of Admission Jan 10, 2020 at 17:15 Date of Discharge 01/12/2020 Admission Diagnosis Admission Diagnosis See problem list Discharge Diagnosis See below Problems/Diagnosis: (1) Complete heart block Assessment & Plan: - Cardiology consulted and plan for pacemaker placement today and likely d.c tomorrow 01/12: Pacemaker placed, patient doing well Status: Acute (2) Bradycardia Status: Resolved Resolution Date/Time: 01/12/20 @ 21:47 (3) HLD (hyperlipidemia) Assessment & Plan: 01/12: Statin Qualifiers: Qualified Codes: E78.2 - Mixed hyperlipidemia Status: Chronic (4) DVT prophylaxis Assessment & Plan: - SCDs, no Lovenox due to procedure Status: Acute Chief Complaint/HPI Chief Complaint/HPI 84 yo F that was at her annual MAWV and was found to have bradycardia. Patient states that she has been fatigued but otherwise she has been asymptomatic. Denies any shortness of breath, chest pain, or dizziness. Discharge Summary-Simple/Stand Procedures 01/11: Pacemaker placed Consultations Dr Velasquez: Cardiology Discharge Physical Examination Allergies: Coded Allergies: No Known Drug Allergies (Unverified , 01/10/20) Vitals & I&Os Vital Sign - Last 12Hours Date Time Temp Pulse Resp B/P (MAP) Pulse Ox O2 Delivery O2 Flow Rate FiO2 01/12/20 08:00 37.0 87 18 128/69 (88) 95 Room Air 01/11/20 16:00 98 Intake and Output 01/12/20 00:00 Intake Total 850 ml Output Total 300 ml Balance 550 ml General Appearance: Alert, Oriented X3, Cooperative, No Acute Distress HEENT: Mucous Memb Moist/[place] Respiratory: Clear to Auscultation, Normal Air Movement Cardiovascular: Regular Rate, No Murmurs, Other (paced rate) Abdominal: Normal Bowel Sounds, Soft, No Tenderness, No Masses Extremities: No Edema, No Tenderness/Swelling Skin: No Rashes, No Breakdown Neuro: Normal Speech, Strength at 5/5 X4 Ext, Sensation Intact, Cranial Nerves 3-12 NL Psych/Mental Status: Mental Status NL Hospital Course Was the Problem List Reviewed?: Yes See final discharge diagnosis. Discussion & Recommendations 84 yo F that present with asymptomatic bradycardia. Patient was found to be in complete heart block. Cardiology consulted and pacemaker placed. Patient doing much better with pacer. Will have f.u with Cardiology and PCP Discharge Condition at discharge stable Instructions to patient/family Please see electronic discharge instructions given to patient. Discharge Medications Reviewed and agree with Discharge Medication list on patient's Discharge Instruction sheet Clinical Quality Measures AMI/AHF: ASA po Prior to arrival: No DVT/VTE Risk/Contraindication: Risk Factor Score Per Nursin RFS Level Per Nursing on Admit: 4+=Very High ERICA ALDRICH MD Jan 12, 2020 11:35
--- NOTE | 2020-01-12 11:39 | Discharge Summary ---
Discharge [facility] Reconcile Patient Problems Problems Reviewed?: Yes Discharge Medications New, Converted or Re-Newed RX: RX on Chart New Medications: Cefuroxime Axetil (Cefuroxime) 500 Mg Tablet 500 MG PO BID, #10 TAB Lisinopril (Lisinopril) 40 Mg Tablet 40 MG PO DAILY, #30 TAB 5 Refills Metoprolol Succinate (Metoprolol Succinate) 100 Mg Tab.er.24h 100 MG PO DAILY, #30 TAB 5 Refills Patient Instructions Goal/Follow Up Appt: You have an appt with Candice Zheng on WednesdayJan 16 @ 1 PM Activity & Diet Discharge Diet: Cardiac Diet Activity as Tolerated: Yes Copy Cop[facility] 1[facility] R MD Jan 12, 2020 11:39
[2020-01-12 12:00] VITALS: BP 125/70
--- NOTE | 2020-01-12 19:22 | Progress Note - Cardiology ---
Cardiology SOAP Progress Note Subjective: No cp or palp or syncope or discomfort at device site Feels well More energetic No n/v/d Objective: I&O/Vital Signs 01/12/20 01/12/20 01/12/20 01/12/20 08:00 08:00 12:00 12:00 Temp 37.0 36.9 Pulse 87 89 Resp 18 18 B/P (MAP) 128/69 (88) 125/70 (88) Pulse Ox 95 95 O2 Delivery Room Air Room Air Room Air Room Air 01/12/20 00:00 Intake Total 850 ml Output Total 300 ml Balance 550 ml Device Insertion Site: without hematoma Drainage: No Bruising: mild bruising Constitutional: AAO x 3, well-developed, well-nourished Respiratory: No accessory muscle use; other (good bilat air entry) Cardiovascular: regular rate-rhythm, S1 and S2, systolic murmur (2/6 XOCHITL at card base) Gastrointestional: No tender; soft; No guarding, No rebound; audible bowel sounds Extremities: No clubbing, No cyanosis, No significant edema Neurologic/Psychiatric: oriented x 3, other (moves all limbs equally) Skin: No rash on exposed areas, No ulcerations on exposed areas Results/Procedures: Labs Laboratory Tests 01/11/20 19:55: Glucometer 186H 01/12/20 03:40: White Blood Count 7.9, Red Blood Count 4.17L, Hemoglobin 11.8, Hematocrit 36, Mean Corpuscular Volume 87, Mean Corpuscular Hemoglobin 28, Mean Corpuscular Hemoglobin Concent 32, Red Cell Distribution Width 13.1, Platelet Count 268, Mean Platelet Volume 9.9, Neutrophils (%) (Auto) 65, Lymphocytes (%) (Auto) 25, Monocytes (%) (Auto) 10, Eosinophils (%) (Auto) 1, Basophils (%) (Auto) 0, Neutrophils # (Auto) 5.1, Lymphocytes # (Auto) 2.0, Monocytes # (Auto) 0.8, Eosinophils # (Auto) 0.1, Basophils # (Auto) 0.0, Sodium Level 135, Potassium Level 4.3, Chloride Level 107, Carbon Dioxide Level 16L, Anion Gap 12, Blood Urea Nitrogen 13, Creatinine 0.91, Estimat Glomerular Filtration Rate 59, BUN/Creatinine Ratio 14, Glucose Level 173H, Calcium Level 8.5, Corrected Calcium 9.1, Phosphorus Level 3.0, Magnesium Level 1.8, Total Bilirubin 0.4, Aspartate Amino Transf (AST/SGOT) 11, Alanine Aminotransferase (ALT/SGPT) 10, Alkaline Phosphatase 56, Total Protein 5.8L, Albumin 3.2 01/12/20 05:39: Glucometer 182H 01/12/20 12:06: Glucometer 144H Microbiology 01/11/20 Urine Culture - Preliminary, Resulted Strep agalactiae Group B 01/10/20 MRSA Screen - Final, Complete MRSA not isolated Laboratory Tests 01/11/20 03:52 01/12/20 03:40 A/P: Assessment: Complete heart block, treated with dual-chamber pacemaker on 01/11/20, functioning normally on interrogation carried out today Hypertension DM II management is with the PCP service Plan: * Treat hypertension with beta-daniella * We gave her and her daughter detailed instructions regarding wound care * We advised close outpt f/u Clinical Quality Measures AMI/AHF: ASA po Prior to arrival: MARINE Barth MD FACP FAC CCDS Jan 12, 2020 19:21
--- NOTE | 2020-01-15 14:25 | Physician Query Clarification ---
PQ-Intro New Diagnosis Admission/Discharge Admission Date: Jan 10, 2020 at 17:15 Discharge Date: Jan 12, 2020 at 12:35 The medical record reflects the following clinical scenario: History/Risk Factors: Complete heart block, HTN, DM Clinical Findings: strep agalactiae Grp B >100,000 Treatment: Cefuroxime Axetil Question: What condition best reflects the above clinical scenario? Please document a response in the Progress Noter or Discharge Summary. 1. UTI d/t strp agalactiae Grp B 2. UTI ruled out comtaminate 3. Other, with explanation of the clinical findings. 4. Clinically undetermined, no explanation for the clinical findings. PHYSICIAN RESPONSE What condition reflects above: 2 Please remember a lack of response to the above will prompt a phone page by CDI/Coding staff. In responding to this query, please exercise your independent professional judgment. The purpose of this communication is to more accurately reflect the complexity of your patients condition. The fact that a question is asked does not imply that any particular answer is desired or expected. Thank you for your timely response to this clarification. Requestors name: Leif THIS PHYSICIAN QUERY FORM IS A PERMANENT PART OF THE MEDICAL RECORD LEIF CUEVAS Jan 15, 2020 14:25 ERICA ALDRICH MD Jan 28, 2020 21:13
--- OUTSIDE RECORDS SUMMARY | 2020-01-19 00:22 | XMS REPORT | Continuity of Care Document ---
Author Organization Unknown Address Unknown Phone Unavailable Allergies Active Description Code Type Severity Reaction Onset Reported/Identified Relationship to Patient Clinical Status Yes No Known Drug Allergies [id number] Drug Allergy Unknown N/A 01/10/2020 Medications There is no data. Problems Date Dx Coded Attending Type Code Diagnosis Diagnosed By 01/12/2020 VALDEMAR ADAN, ERICA Luis Ot E11.9 TYPE 2 DIABETES MELLITUS WITHOUT COMPLIC 01/12/2020 VALDEMAR ADAN, ERICA Luis Ot E78.5 HYPERLIPIDEMIA, UNSPECIFIED 01/12/2020 VALDEMAR ADAN, ERICA R Ot I10 ESSENTIAL (PRIMARY) HYPERTENSION 01/12/2020 VALDEMAR ADAN, ERICA R Ot I44.2 ATRIOVENTRICULAR BLOCK, COMPLETE 01/12/2020 VALDEMAR ADAN, ERICA R Ot R00.1 BRADYCARDIA, UNSPECIFIED 01/12/2020 VALDEMAR ADAN, ERICA R Ot Z79.8 4 BOND BROKER (CURRENT) USE OF ORAL HYPOGLYC Procedures Code Description Performed By Per formed On [id number] IN SERTION OF PACEMAKER LEAD INTO RIGHT A 01/11/202066LP7GS IN SERTION OF PACEMAKER LEAD INTO R VENTR 01/11/2020 [id number] IN SERT PACE. DUAL SHERICE IN CHEST SUBCU/FA 01/11/2020 Results Test Result Range Complete blood count (CBC) with automate d white blood cell (WBC) differential - 01/10/20 16:20 Blood leukocytes automated count (number/volume) 8.3 10*3/uL 4.3-11.0 Blood erythrocytes automated count (number/volume) 4.84 10*6/uL 4.35-5.85 Venous blood hemoglobin measurement (mass/volume) 14.1 g/dL 11.5-16.0 Blood hematocrit (volume fraction) 41 % 35-52 Automated erythrocyte mean corpuscular volume 84 [ foz_us] 80-99 Automated erythrocyte mean corpuscular h emoglobin (mass per erythrocyte) 29 pg 25-34 Automated erythrocyte mean corpuscular h emoglobin concentration measurement (mass/volume) 35 g/dL 32-36 Automated erythrocyte distribution width ratio 12. 7 % 10.0- 14.5 Automated blood platelet count (count/volume) 360 10*3/uL 130-400 Automated blood platelet mean volume measurement 9.8 [foz_us] 7.4-10.4 Automated blood neutrophils/100 leukocytes 56 % 42-75 Automated blood lymphocytes/100 leukocytes 37 % 12-44 Blood monocytes/100 leukocytes 7 % 0-12 Automated blood eosinophils/100 leukocytes 1 % 0-10 Automated blood basophils/100 leukocytes 0 % 0-10 Blood neutrophils automated count (number/volume) 4.7 10*3 1.8-7.8 Blood lymphocytes automated count (number/volume) 3.1 10*3 1.0-4.0 Blood monocytes automated count (number/volume) 0. 5 10*3 0.0-1.0 Automated eosinophil count 0.1 10*3/uL 0 .0-0.3 Automated blood basophil count (count/volume) 0.0 10*3/uL 0.0-0.1 PT panel in platelet poor plasma by coag ulation assay - 01/10/20 16:20 Prothrombin time (PT) in platelet poor plasma by coagu lation assay 12.8 s 12.2-14.7 INR in platelet poor plasma or blood by coagulation as say 0.9 0.8-1.4 Activated partial thromboplastin time (a PTT) in platelet poor plasma bycoagulation assay - 01/10/20 16:20 Activated partial thromboplastin time (a PTT) in platelet poor plasma bycoagulation assay 27 s 24-35 Comprehensive metabolic panel - 01/10/20 16:20 Serum or plasma sodium measurement (moles/volume) 132 mmol/L 135-145 Serum or plasma potassium measurement (moles/volume) 4.6 mmol/L 3.6-5.0 Serum or plasma chloride measurement (moles/volume) 98 mmol/L 98-107 Carbon dioxide 19 mmol/L 21-32 Serum or plasma anion gap determination (moles/volume) 15 mmol/L 5-14 Serum or plasma urea nitrogen measurement (mass/volume ) 12 mg/dL 7-18 Serum or plasma creatinine measurement (mass/volume) 1.03 mg/dL 0.60-1.30 Serum or plasma urea nitrogen/creatinine mass ratio 12 NRG Serum or plasma creatinine measurement w ith calculation of estimated glomerular filtration rate 51 NRG Serum or plasma glucose measurement (mass/volume) 219 mg/dL 70-105 Serum or plasma calcium measurement (mass/volume) 10.2 mg/dL 8.5-10.1 Serum or plasma total bilirubin measurement (mass/volu me) 0.4 mg/dL 0.1-1.0 Serum or plasma alkaline phosphatase anayeli surement (enzymatic activity/volume) 75 U/L 40-136 Serum or plasma aspartate aminotransfera se measurement (enzymatic activity/volume) 14 U/L 5-34 Serum or plasma alanine aminotransferase measurement (enzymatic activity/volume) 17 U/L 0-55 Serum or plasma protein measurement (mass/volume) 7.7 g/dL 6.4-8.2 Serum or plasma albumin measurement (mass/volume) 4.2 g/dL 3.2-4.5 CALCIUM CORRECTED 10.0 mg/dL 8.5-10.1 Magnesium - 01/10/20 16:20 Magnesium 1.5 mg/dL 1.6-2.4 Serum or plasma lithium measurement (mol es/volume) - 01/10/20 16:20 BNP PT 80.8 pg/mL <100.0 Myoglobin, serum - 01/10/20 16:20 Myoglobin, serum 48.2 ng/mL 10.0-92.0 Serum or plasma troponin i.cardiac measu rement (mass/volume) - 01/10/20 16:20 Serum or plasma troponin i.cardiac measurement (mass/v olume) < ng/mL <0.028 Methicillin resistant Staphylococcus aur eus (MRSA) screening culture - 01/10/20 19:05 Methicillin resistant Staphylococcus aureus (MRSA) scr eening culture NEG NRG Capillary blood glucose measurement by g lucometer (mass/volume) - 01/10/20 22:19 Capillary blood glucose measurement by glucometer (mas s/volume) 315 mg/dL 70-110 Complete blood count (CBC) with automate d white blood cell (WBC) differential - 01/11/20 03:52 Blood leukocytes automated count (number/volume) 9.5 10*3/uL 4.3-11.0 Blood erythrocytes automated count (number/volume) 4.43 10*6/uL 4.35-5.85 Venous blood hemoglobin measurement (mass/volume) 12.7 g/dL 11.5-16.0 Blood hematocrit (volume fraction) 37 % 35-52 Automated erythrocyte mean corpuscular volume 84 [ foz_us] 80-99 Automated erythrocyte mean corpuscular h emoglobin (mass per erythrocyte) 29 pg 25-34 Automated erythrocyte mean corpuscular h emoglobin concentration measurement (mass/volume) 34 g/dL 32-36 Automated erythrocyte distribution width ratio 12. 9 % 10.0- 14.5 Automated blood platelet count (count/volume) 318 10*3/uL 130-400 Automated blood platelet mean volume measurement 10.3 [foz_us] 7.4-10.4 Automated blood neutrophils/100 leukocytes 68 % 42-75 Automated blood lymphocytes/100 leukocytes 23 % 12-44 Blood monocytes/100 leukocytes 9 % 0-12 Automated blood eosinophils/100 leukocytes 1 % 0-10 Automated blood basophils/100 leukocytes 0 % 0-10 Blood neutrophils automated count (number/volume) 6.4 10*3 1.8-7.8 Blood lymphocytes automated count (number/volume) 2.2 10*3 1.0-4.0 Blood monocytes automated count (number/volume) 0. 8 10*3 0.0-1.0 Automated eosinophil count 0.1 10*3/uL 0 .0-0.3 Automated blood basophil count (count/volume) 0.0 10*3/uL 0.0-0.1 Comprehensive metabolic panel - 01/11/20 03:52 Serum or plasma sodium measurement (moles/volume) 133 mmol/L 135-145 Serum or plasma potassium measurement (moles/volume) 4.4 mmol/L 3.6-5.0 Serum or plasma chloride measurement (moles/volume) 103 mmol/L 98-107 Carbon dioxide 18 mmol/L 21-32 Serum or plasma anion gap determination (moles/volume) 12 mmol/L 5-14 Serum or plasma urea nitrogen measurement (mass/volume ) 15 mg/dL 7-18 Serum or plasma creatinine measurement (mass/volume) 1.14 mg/dL 0.60-1.30 Serum or plasma urea nitrogen/creatinine mass ratio 13 NRG Serum or plasma creatinine measurement w ith calculation of estimated glomerular filtration rate 45 NRG Serum or plasma glucose measurement (mass/volume) 182 mg/dL 70-105 Serum or plasma calcium measurement (mass/volume) 9.5 mg/dL 8.5-10.1 Serum or plasma total bilirubin measurement (mass/volu me) 0.4 mg/dL 0.1-1.0 Serum or plasma alkaline phosphatase anayeli surement (enzymatic activity/volume) 62 U/L 40-136 Serum or plasma aspartate aminotransfera se measurement (enzymatic activity/volume) 12 U/L 5-34 Serum or plasma alanine aminotransferase measurement (enzymatic activity/volume) 12 U/L 0-55 Serum or plasma protein measurement (mass/volume) 6.4 g/dL 6.4-8.2 Serum or plasma albumin measurement (mass/volume) 3.6 g/dL 3.2-4.5 CALCIUM CORRECTED 9.8 mg/dL 8.5-10.1 Serum or plasma phosphate measurement (m ass/volume) - 01/11/20 03:52 Serum or plasma phosphate measurement (mass/volume) 3.2 mg/dL 2.3-4.7 Magnesium - 01/11/20 03:52 Magnesium 2.1 mg/dL 1.6-2.4 Lipid 1996 panel - 01/11/20 03:52 Serum or plasma triglyceride measurement (mass/volume) 186 mg/dL <150 Serum or plasma cholesterol measurement (mass/volume) 232 mg/dL < 200 Serum or plasma cholesterol in HDL measurement (mass/v olume) 46 mg/dL 40-60 Cholesterol in LDL [mass/volume] in serum or plasma by direct assay 180 mg/dL 1-129 Serum or plasma cholesterol in VLDL measurement (mass/ volume) 37 mg/dL 5-40 Capillary blood glucose measurement by g lucometer (mass/volume) - 01/11/20 06:03 Capillary blood glucose measurement by glucometer (mas s/volume) 200 mg/dL 70-110 Capillary blood glucose measurement by g lucometer (mass/volume) - 01/11/20 11:43 Capillary blood glucose measurement by glucometer (mas s/volume) 188 mg/dL 70-110 Complete urinalysis with reflex to cultu re - 01/11/20 14:37 Urine color determination YELLOW NRG Urine clarity determination TURBID NR G Urine pH measurement by test strip 5.5 5-9 Specific gravity of urine by test strip >= 1.016-1.022 Urine protein assay by test strip, semi-quantitative 2+ NEGATIVE Urine glucose detection by automated test strip NE GATIVE NEGATIVE Erythrocytes detection in urine sediment by light micr oscopy TRACE-I NEGATIVE Urine ketones detection by automated test strip 1+ NEGATIVE Urine nitrite detection by test strip NEGATIVE NEGATIVE Urine total bilirubin detection by test strip 1+ NEGATIVE Urine urobilinogen measurement by automated test strip (mass/volume) 0.2 mg/dL < = 1.0 Urine leukocyte esterase detection by dipstick 2+ NEGATIVE Automated urine sediment erythrocyte cou nt by microscopy (number/high power field) NONE NRG Automated urine sediment leukocyte count by microscopy (number/high power field) TNTC NRG Bacteria detection in urine sediment by light microsco py LARGE NRG Squamous epithelial cells detection in u rine sediment by light microscopy 2-5 NRG Crystals detection in urine sediment by light microsco py NONE NRG Casts detection in urine sediment by light microscopy NONE NRG Mucus detection in urine sediment by light microscopy NEGATIVE NRG Complete urinalysis with reflex to culture YES NRG Bacterial urine culture - 01/11/20 14:37 Bacterial urine culture [id number] NRG COLONY COUNT >100,000/ML NRG FREE TEXT ENTRY 2 PRELIM RAPID ID AT [facility] 01-12-20, [id number] NRG FREE TEXT ENTRY 3 ID CONFIRMED NRG Capillary blood glucose measurement by g lucometer (mass/volume) - 01/11/20 15:34 Capillary blood glucose measurement by glucometer (mas s/volume) 190 mg/dL 70-110 Capillary blood glucose measurement by g lucometer (mass/volume) - 01/11/20 19:55 Capillary blood glucose measurement by glucometer (mas s/volume) 186 mg/dL 70-110 Complete blood count (CBC) with automate d white blood cell (WBC) differential - 01/12/20 03:40 Blood leukocytes automated count (number/volume) 7.9 10*3/uL 4.3-11.0 Blood erythrocytes automated count (number/volume) 4.17 10*6/uL 4.35-5.85 Venous blood hemoglobin measurement (mass/volume) 11.8 g/dL 11.5-16.0 Blood hematocrit (volume fraction) 36 % 35-52 Automated erythrocyte mean corpuscular volume 87 [ foz_us] 80-99 Automated erythrocyte mean corpuscular h emoglobin (mass per erythrocyte) 28 pg 25-34 Automated erythrocyte mean corpuscular h emoglobin concentration measurement (mass/volume) 32 g/dL 32-36 Automated erythrocyte distribution width ratio 13. 1 % 10.0- 14.5 Automated blood platelet count (count/volume) 268 10*3/uL 130-400 Automated blood platelet mean volume measurement 9.9 [foz_us] 7.4-10.4 Automated blood neutrophils/100 leukocytes 65 % 42-75 Automated blood lymphocytes/100 leukocytes 25 % 12-44 Blood monocytes/100 leukocytes 10 % 0-12 Automated blood eosinophils/100 leukocytes 1 % 0-10 Automated blood basophils/100 leukocytes 0 % 0-10 Blood neutrophils automated count (number/volume) 5.1 10*3 1.8-7.8 Blood lymphocytes automated count (number/volume) 2.0 10*3 1.0-4.0 Blood monocytes automated count (number/volume) 0. 8 10*3 0.0-1.0 Automated eosinophil count 0.1 10*3/uL 0 .0-0.3 Automated blood basophil count (count/volume) 0.0 10*3/uL 0.0-0.1 Comprehensive metabolic panel - 01/12/20 03:40 Serum or plasma sodium measurement (moles/volume) 135 mmol/L 135-145 Serum or plasma potassium measurement (moles/volume) 4.3 mmol/L 3.6-5.0 Serum or plasma chloride measurement (moles/volume) 107 mmol/L 98-107 Carbon dioxide 16 mmol/L 21-32 Serum or plasma anion gap determination (moles/volume) 12 mmol/L 5-14 Serum or plasma urea nitrogen measurement (mass/volume ) 13 mg/dL 7-18 Serum or plasma creatinine measurement (mass/volume) 0.91 mg/dL 0.60-1.30 Serum or plasma urea nitrogen/creatinine mass ratio 14 NRG Serum or plasma creatinine measurement w ith calculation of estimated glomerular filtration rate 59 NRG Serum or plasma glucose measurement (mass/volume) 173 mg/dL 70-105 Serum or plasma calcium measurement (mass/volume) 8.5 mg/dL 8.5-10.1 Serum or plasma total bilirubin measurement (mass/volu me) 0.4 mg/dL 0.1-1.0 Serum or plasma alkaline phosphatase anayeli surement (enzymatic activity/volume) 56 U/L 40-136 Serum or plasma aspartate aminotransfera se measurement (enzymatic activity/volume) 11 U/L 5-34 Serum or plasma alanine aminotransferase measurement (enzymatic activity/volume) 10 U/L 0-55 Serum or plasma protein measurement (mass/volume) 5.8 g/dL 6.4-8.2 Serum or plasma albumin measurement (mass/volume) 3.2 g/dL 3.2-4.5 CALCIUM CORRECTED 9.1 mg/dL 8.5-10.1 Serum or plasma phosphate measurement (m ass/volume) - 01/12/20 03:40 Serum or plasma phosphate measurement (mass/volume) 3.0 mg/dL 2.3-4.7 Magnesium - 01/12/20 03:40 Magnesium 1.8 mg/dL 1.6-2.4 Capillary blood glucose measurement by g lucometer (mass/volume) - 01/12/20 05:39 Capillary blood glucose measurement by glucometer (mas s/volume) 182 mg/dL 70-110 Capillary blood glucose measurement by g lucometer (mass/volume) - 01/12/20 12:06 Capillary blood glucose measurement by glucometer (mas s/volume) 144 mg/dL 70-110 Encounters ACCT No. Visit Date/Time Discharge Status Pt. Type Provider Facility Loc./Unit Complaint [id number] 01/10/2020 17:15:00 020 12:35:00 DIS Inpatient ERICA ALDRICH MD [facility] CSD 3RD DEGREE HEART BLOCK VS MOBITZ TYPE 2
--- OUTSIDE RECORDS SUMMARY | 2020-01-19 01:49 | XMS REPORT | Continuity of Care Document ---
Author Organization Unknown Address Unknown Phone Unavailable Allergies Active Description Code Type Severity Reaction Onset Reported/Identified Relationship to Patient Clinical Status Yes No Known Drug Allergies [id number] Drug Allergy Unknown N/A 01/10/2020 Medications There [...] VALDEMAR ADAN, ERICA R Ot Z79.8 4 PRODUCTION INTERN (CURRENT) USE OF ORAL HYPOGLYC Procedures Code Description Performed By Per formed On 59R89TC IN SERTION OF PACEMAKER LEAD INTO RIGHT A 01/11/202030YX9EM IN SERTION OF PACEMAKER LEAD INTO R VENTR 01/11/2020 [id number] IN SERT PACE. DUAL SHERICE IN CHEST [...] culture - 01/11/20 14:37 Bacterial urine culture [id number] NRG COLONY COUNT >100,000/ML NRG FREE TEXT ENTRY 2 PRELIM RAPID ID AT [facility] 01-12-20, 1607 NRG FREE TEXT [...] Status Pt. Type Provider Facility Loc./Unit Complaint [id number] 01/10/2020 17:15:00 020 12:35:00 DIS Inpatient ERICA ALDRICH MD [facility] CSD 3RD DEGREE HEART BLOCK VS MOBITZ TYPE 2
== END 2020-01-12 12:35 | disposition home or self-care (01) | DRG 244 ==
LOC: ER 15:56 → ICU 17:15 → CSD 01-11 20:20
PROVIDERS: ADMIT Family Medicine; ATTEND Family Medicine
PROC: 02H63JZ Insertion of Pacemaker Lead into Right Atrium, Percutaneous Approach (ICD-10-PCS; principal; 2020-01-11)
PROC: 02HK3JZ Insertion of Pacemaker Lead into Right Ventricle, Percutaneous Approach (ICD-10-PCS; 2020-01-11)
PROC: 0JH606Z Insertion of Pacemaker, Dual Chamber into Chest Subcutaneous Tissue and Fascia, Open Approach (ICD-10-PCS; 2020-01-11)
DX: I44.2 Atrioventricular block, complete (principal); R00.1 Bradycardia, unspecified; E78.5 Hyperlipidemia, unspecified; I10 Essential (primary) hypertension; E11.9 Type 2 diabetes mellitus without complications; Z79.84 Long term (current) use of oral hypoglycemic drugs
CPT/HCPCS: 33208; 36415; 71045; 71046; 80053; 80061; 81000; 82962; 83735; 83874; 83880; 84100; 84484; 85025; 85027; 85610; 85730; 87077; 87081; 87088; 93005; 93041; 93306; 96374